=== PATIENT | female | born 1945 | race Caucasian/White ===

== ENCOUNTER 2017-04-09 05:27 | Day surgery (SDC) | payer OTHER ==
[~2017-04-09] VITALS: Ht 162.6 cm; Wt 113.4 kg
[~2017-04-09 05:27] MED LIST: BENEMID500 MG PO; COLCRYS0.6 MG PO; DIOVAN HCT 11 TABLE1 PO; DIOVAN320 MG PO; JANUMET XR 50-1 EAC1 PO; LASIX20 MG PO; LEVAQUIN500 MG PO; LIVALO2 MG PO; MEVACOR40 MG PO; NASAL SPRAY NS; SINUS RELIEF15 ML BOTH NARES; SYNTHROID50 MCG PO; VITAMIN C1000 MG PO; VITAMIN D31000 UNI2 PO; VITAMIN D35000 UNIT PO; WOMEN'S DAILY1 EACH PO
[2017-04-09 06:40] VITALS: BP 159/71
[2017-04-09 09:27] VITALS: BP 147/65
[2017-04-09 10:10] VITALS: BP 126/60
== END 2017-04-09 10:16 | disposition home or self-care (01) ==
LOC: SDC 05:27
PROVIDERS: Obstetrics & Gynecology Gynecologic Oncology
PROC: 0UDB8ZX Extraction of Endometrium, Via Natural or Artificial Opening Endoscopic, Diagnostic (ICD-10-PCS; principal; 2017-04-09)
DX: N87.9 Dysplasia of cervix uteri, unspecified (principal); N95.0 Postmenopausal bleeding; E66.01 Morbid (severe) obesity due to excess calories; Z68.41 Body mass index [BMI] 40.0-44.9, adult; I10 Essential (primary) hypertension; G47.30 Sleep apnea, unspecified; E11.9 Type 2 diabetes mellitus without complications; E03.9 Hypothyroidism, unspecified
CPT/HCPCS: 82948; 88305; J0330; J0690; J2250; J2405; J3010